=== PATIENT | female | born 1950 | race African-American/Black ===

== ENCOUNTER 2022-02-27 14:32 | Emergency (ER) | payer BC, MEDICAID ==
[~2022-02-27] VITALS: Ht 162.6 cm; Wt 73.0 kg
[2022-02-27 14:34] VITALS: BP 151/88
[2022-02-27] MEDS ORDERED: CLOPIDOGREL 75MG TABLET PO ONE (15:00)
== END 2022-02-27 16:09 | disposition left against medical advice (07) ==
LOC: ER 14:48
DX: R07.9 Chest pain, unspecified (principal); I10 Essential (primary) hypertension; I25.2 Old myocardial infarction; I25.10 Atherosclerotic heart disease of native coronary artery without angina pectoris; R94.31 Abnormal electrocardiogram [ECG] [EKG]; Z88.6 Allergy status to analgesic agent; Z91.199 Patient's noncompliance with other medical treatment and regimen due to unspecified reason
CPT/HCPCS: 93005; 99283